=== PATIENT | female | born 1985 | race Caucasian/White ===

== ENCOUNTER 2016-08-24 13:27 | Emergency (ER) | payer OTHER | END 2016-08-24 14:36 | disposition home or self-care (01) | LOC: FER 13:27 | DX: B34.9 Viral infection, unspecified (principal); J45.909 Unspecified asthma, uncomplicated; R19.7 Diarrhea, unspecified; F17.210 Nicotine dependence, cigarettes, uncomplicated | CPT/HCPCS: 71020; 94640; J2405 ==